=== PATIENT | male | born 1940 | race Caucasian/White ===

== ENCOUNTER 2021-12-09 09:11 | Outpatient (CLI) | payer MEDICARE, OTHER | END 2021-12-09 09:12 | disposition home or self-care (01) | LOC: NM 09:11 | PROVIDERS: ATTEND Psychiatry & Neurology Neurology | DX: R26.9 Unspecified abnormalities of gait and mobility (principal); R25.1 Tremor, unspecified | CPT/HCPCS: 78803; A9584 ==